=== PATIENT | female | born 1995 | race Two or more races ===

== ENCOUNTER 2021-10-23 03:06 | Emergency (ER) | payer OTHER ==
[~2021-10-23] VITALS: Ht 172.7 cm; Wt 64.4 kg
[2021-10-23] MEDS ORDERED: MIRENA1 EACH IY (03:17)
[2021-10-23] MEDS ORDERED: DICLOFENAC SODI75 MG PO (06:01)
== END 2021-10-23 06:07 | disposition home or self-care (01) ==
LOC: ER 03:06
DX: R10.2 Pelvic and perineal pain (principal)